=== PATIENT | male | born 1950 | race Caucasian/White ===

== ENCOUNTER 2018-06-05 11:27 | Emergency (ER) | payer MEDICARE, OTHER | END 2018-06-05 14:06 | disposition home or self-care (01) | LOC: FTE 11:27 | DX: S86.911A Strain of unspecified muscle(s) and tendon(s) at lower leg level, right leg, initial encounter (principal); W18.40XA Slipping, tripping and stumbling without falling, unspecified, initial encounter; Y92.9 Unspecified place or not applicable | CPT/HCPCS: 93971; 99284-25 ==